=== PATIENT | male | born 1940 | race Caucasian/White ===

== ENCOUNTER 2018-09-02 08:22 | Day surgery (SDC) | payer OTHER | END 2018-09-02 15:31 | disposition home or self-care (01) | LOC: AMB-ENDOS 08:22 → CIR.AMB 14:00 → AMB-ENDOS 14:00 | DX: D12.0 Benign neoplasm of cecum (principal); D12.2 Benign neoplasm of ascending colon; D12.3 Benign neoplasm of transverse colon; K64.1 Second degree hemorrhoids; D12.8 Benign neoplasm of rectum ==